=== PATIENT | male | born 1950 | race Caucasian/White ===

== ENCOUNTER 2017-05-19 21:18 | Emergency (ER) | payer BC ==
[~2017-05-19] VITALS: Ht 165.1 cm; Wt 83.3 kg
[2017-05-19 21:24] VITALS: BP 154/93; PULSE 88; RESP 16; TEMP 97.6; O2SAT 96
--- NOTE | 2017-05-19 21:42 | PD ---
HPI Chief Complaint: overheated Time Seen by Provider: 21:28 Travel History International Travel<30 days: Yes Contact w/Intl Traveler<30days: Yes Traveled to known affect area: Yes History of Present Illness HPI This 66-year-old male says he was in his garage today. He was extremely hot and he started feeling badly. He had quite a bad headache. He had some numbness in his left arm. He is having some numbness in his left arm off and on for several days. He says he was traveling last week and had to lift the heavy suitcase repeatedly with left arm. He hasn't been she has had chest pain. He had a bad headache which was fairly diffuse. The headache is improved considerably. [facility] Social History Tobacco Use: No Allergies-Medications (Allergen,Severity, Reaction): Coded Allergies: No Known Allergies (Unverified , 05/19/17) Reported Meds & Prescriptions Reported Meds & Active Scripts Active Reported Xalatan Opth Drops (Latanoprost) 0.005% Drops 1 Drop EACH EYE HS Hydrochlorothiazide 12.5 Mg Cap 12.5 Mg PO DAILY Omeprazole 20 Mg Tab 20 Mg PO DAILY Tamsulosin (Tamsulosin HCl) 0.4 Mg Cap 0.4 Mg PO HS Lisinopril 10 Mg Tab 10 Mg PO DAILY Review of Systems General / Constitutional: No: Fever, Chills Eyes: No: Diploplia HENT: Positive: Headaches Cardiovascular: Positive: Chest Pain or Discomfort, No: Palpitations Respiratory: No: Cough, Shortness of Breath Gastrointestinal: No: Nausea, Vomiting Genitourinary: No: Frequency Musculoskeletal: No: Myalgias Neurologic: Positive: Sensory Disturbance Psychiatric: No: Anxiety, Depression Physical Exam Narrative GENERAL: Well-developed male SKIN: Focused skin assessment warm/dry. HEAD: Atraumatic. Normocephalic. EYES: Pupils equal and round. No scleral icterus. No injection or drainage. ENT: No nasal bleeding or discharge. Mucous membranes pink and moist. NECK: Trachea midline. No JVD. CARDIOVASCULAR: Regular rate and rhythm. No murmur appreciated. RESPIRATORY: No accessory muscle use. Clear to auscultation. Breath sounds equal bilaterally. GASTROINTESTINAL: Abdomen soft, non-tender, nondistended. Hepatic and splenic margins not palpable. MUSCULOSKELETAL: No obvious deformities. No clubbing. No cyanosis. No edema. NEUROLOGICAL: Awake and alert. No obvious cranial nerve deficits. Motor grossly within normal limits. Normal speech. Patient complains of some numbness on the lateral arm but objective sensory testing is normal PSYCHIATRIC: Appropriate mood and affect; insight and judgment normal. Data Data Last Documented VS Vital Signs Date Time Temp Pulse Resp B/P Pulse Ox O2 Delivery O2 Flow Rate FiO2 05/19/17 22:16 80 16 129/82 96 Room Air 05/19/17 22:05 97.6 Orders Electrocardiogram (05/19/17 21:39) Complete Blood Count With Diff (05/19/17 21:39) Basic Metabolic Panel (Bmp) (05/19/17 21:39) Troponin I (05/19/17 21:39) Ct Brain W/O Iv Contrast(Rout) (05/19/17 21:39) Potassium Chloride (Kcl) (05/19/17 22:45) Labs Laboratory Tests Test 05/19/17 21:45 White Blood Count 8.1 TH/MM3 Red Blood Count 5.04 MIL/MM3 Hemoglobin 15.6 GM/DL Hematocrit 46.2 % Mean Corpuscular Volume 91.5 FL Mean Corpuscular Hemoglobin 30.8 PG Mean Corpuscular Hemoglobin 33.7 % Concent Red Cell Distribution Width 11.8 % Platelet Count 252 TH/MM3 Mean Platelet Volume 8.1 FL Neutrophils (%) (Auto) 66.6 % Lymphocytes (%) (Auto) 26.1 % Monocytes (%) (Auto) 5.0 % Eosinophils (%) (Auto) 1.7 % Basophils (%) (Auto) 0.6 % Neutrophils # (Auto) 5.5 TH/MM3 Lymphocytes # (Auto) 2.1 TH/MM3 Monocytes # (Auto) 0.4 TH/MM3 Eosinophils # (Auto) 0.1 TH/MM3 Basophils # (Auto) 0.0 TH/MM3 CBC Comment DIFF FINAL Differential Comment Sodium Level 136 MEQ/L Potassium Level 3.4 MEQ/L Chloride Level 102 MEQ/L Carbon Dioxide Level 24.3 MEQ/L Anion Gap 10 MEQ/L Blood Urea Nitrogen 18 MG/DL Creatinine 1.20 MG/DL Estimat Glomerular Filtration 61 ML/MIN Rate Random Glucose 170 MG/DL Calcium Level 9.0 MG/DL Troponin I LESS THAN 0.02 NG/ML MDM Medical Decision Making Medical Screen Exam Complete: Yes Emergency Medical Condition: Yes Medical Record Reviewed: Yes Differential Diagnosis Differential includes headache, CVA, heat exhaustion Narrative Course EKG shows a normal sinus rhythm. CT scan of the brain is negative. Troponin is normal. His potassium is slightly low. He is stable for discharge. He had been in the he got weak and dizzy he feels better now. Diagnosis Primary Impression: Heat effect Disposition: 01 DISCHARGE HOME Condition: Stable Jose Roberto Bear MD May 19, 2017 21:42
[2017-05-19 22:03] LABS: AUTOMATED NEUTROPHIL # 5.5 TH/MM3 (1.8-7.7); BASOPHIL % 0.6 % (0.0-2.0); EOSINOPHIL # 0.1 TH/MM3 (0-0.4); EOSINOPHIL % 1.7 % (0.0-4.0); HEMATOCRIT 46.2 % (39.0-51.0); HEMO FLAGS DIFF FINAL; LYMPH % 26.1 % (9.0-44.0); LYMPHOCYTE # 2.1 TH/MM3 (1.0-4.8); MEAN CELL VOLUME 91.5 FL (80.0-100.0); MEAN CORPUSCULAR HEMOGLOBIN 30.8 PG (27.0-34.0); MEAN CORPUSCULAR HGB CONC 33.7 % (32.0-36.0); NEUT % 66.6 % (16.0-70.0); PLATELET COUNT 252 TH/MM3 (150-450); RED BLOOD COUNT 5.04 MIL/MM3 (4.50-5.90); RED CELL DISTRIBUTION WIDTH 11.8 % (11.6-17.2); WHITE BLOOD COUNT 8.1 TH/MM3 (4.0-11.0)
[2017-05-19 22:05] VITALS: BP 154/93; PULSE 88; RESP 16; TEMP 97.6; O2SAT 96
[2017-05-19 22:12] LABS: CHLORIDE 102 MEQ/L (98-107); POTASSIUM 3.4 MEQ/L (3.5-5.1); SODIUM (NA) 136 MEQ/L (136-145)
--- NOTE | 2017-05-19 22:14 | RADRPT ---
EXAM DATE/TIME: 05/19/2017 21:54 [place] COMPARISON: No previous studies available for comparison. INDICATIONS : Cephalgia. RADIATION DOSE: 57.56 CTDIvol (mGy) MEDICAL HISTORY : None SURGICAL HISTORY : None. ENCOUNTER: Initial ACUITY: 1 day PAIN SCALE: 6/10 LOCATION: Bilateral cranial TECHNIQUE: Multiple contiguous axial images were obtained of the head. Using automated exposure control and adj ustment of the mA and/or kV according to patient size, radiation dose was kept as low as reasonably a chievable to obtain optimal diagnostic quality images. DICOM format image data is available electro nically for review and comparison. FINDINGS: CEREBRUM: The ventricles are normal for age. No evidence of midline shift, mass lesion, hemorrhage or acute in farction. No extra-axial fluid collections are seen. POSTERIOR FOSSA: The cerebellum and brainstem are intact. The 4th ventricle is midline. The cerebellopontine angle i s unremarkable. EXTRACRANIAL: The visualized portion of the orbits is intact. SKULL: The calvaria is intact. No evidence of skull fracture. CONCLUSION: Negative noncontrast head CT. Samuel Lopez MD on May 19, 2017 at 22:12 Board Certified Radiologist. This report was verified electronically.
[2017-05-19 22:15] LABS: ANION GAP 10 MEQ/L (5-15); BICARBONATE 24.3 MEQ/L (21.0-32.0)
[2017-05-19] MEDS ORDERED: TAMS0.4C4 PO (22:15)
[2017-05-19] MEDS ORDERED: LATA.005%O EACH EYE (22:15)
[2017-05-19] MEDS ORDERED: HYDR12.57 PO (22:15)
[2017-05-19] MEDS ORDERED: LISI10TA3 PO (22:15)
[2017-05-19] MEDS ORDERED: OMEP20TA PO (22:15)
[2017-05-19 22:16] VITALS: BP 129/82; PULSE 80; RESP 16; O2SAT 96
[2017-05-19 22:16] LABS: BLOOD UREA NITROGEN 18 MG/DL (7-18)
[2017-05-19 22:19] LABS: GLOMERULAR FILTRATION RATE 61 ML/MIN (>89)
[2017-05-19] MEDS ORDERED: POTASSIUM CHLORIDE 20 MEQ CONTROLLED RELEASE TAB PO ONE (22:45)
[2017-05-19] MEDS ORDERED: POTA10TA15 PO (22:52)
[2017-05-19] MEDS ORDERED: ONDANSETRON ODT 4 MG TAB PO ONE (23:00)
[2017-05-19] MEDS ORDERED: ACETAMINOPHEN 325 MG TAB PO ONE (23:00)
[2017-05-19] MEDS ORDERED: ACETAMINOPHEN/HYDROcodone 325 MG/5 MG TAB PO ONE (23:00)
[2017-05-19 23:06] VITALS: BP 118/86
--- NOTE | 2017-05-20 07:40 | EKG ---
Date Performed: 05/19/2017 Time Performed: 21:49:57 PTAGE: 66 years EKG: Sinus rhythm NORMAL ECG NO PREVIOUS TRACING DOCTOR: Shaheed Sweet Interpretating Date/Time 05/20/2017 07:39:04
== END 2017-05-19 23:30 | disposition home or self-care (01) ==
LOC: PHED 21:18
DX: T67.9XXA Effect of heat and light, unspecified, initial encounter (principal); R51 Headache; R20.0 Anesthesia of skin
CPT/HCPCS: 70450; 80048; 84484; 85025; 93005; 99285

== ENCOUNTER 2017-10-01 09:12 | Emergency (ER) | payer BC, MEDICARE ==
[~2017-10-01] VITALS: Ht 165.1 cm; Wt 79.0 kg
[~2017-10-01 09:12] MED LIST: HYDR12.57 PO; LATA.005%O EACH EYE; LISI10TA3 PO; OMEP20TA93 PO; POTA10TA15 PO; TAMS0.4C4 PO
[2017-10-01 09:16] VITALS: BP 137/87; PULSE 109; RESP 16; TEMP 99.1; O2SAT 100
[2017-10-01] MEDS ORDERED: FINA5TAB2 PO (09:33)
[2017-10-01] MEDS ORDERED: FENO160T PO (09:33)
[2017-10-01] MEDS ORDERED: BENZ100 PO (10:14)
[2017-10-01] MEDS ORDERED: OSEL75 PO (10:14)
[2017-10-01] MEDS ORDERED: IBUP1TAB7 PO (10:14)
[2017-10-01] MEDS ORDERED: KETOROLAC TROMETHAMINE 60 MG/2 ML (IM) VIAL IM ONE (10:15)
--- NOTE | 2017-10-01 10:15 | PD ---
HPI Chief Complaint: Cold / Flu Symptoms Time Seen by Provider: 09:29 Travel History International Travel<30 days: No Contact w/Intl Traveler<30days: No Traveled to known affect area: No History of Present Illness HPI 67-year-old male here with body aches, fever, cough times one day. No known sick contacts. No foreign travel. No aggravating or alleviating factors. Symptoms severity is moderate. PFSH Past Medical History Cardiovascular Problems: Yes (htn on meds) High Cholesterol: Yes GERD: Yes Glaucoma: Yes Hypertension: Yes Tetanus Vaccination: > 5 Years Influenza Vaccination: Yes Social History Alcohol Use: No Tobacco Use: No Substance Use: No Allergies-Medications (Allergen,Severity, Reaction): Coded Allergies: barium iodide (Verified Allergy, Severe, rash, sob, 10/01/17) Reported Meds & Prescriptions Reported Meds & Active Scripts Active Ibuprofen 800 Mg Tab 800 Mg PO Q6HR PRN Tessalon Perles (Benzonatate) 100 Mg Cap 200 Mg PO TID PRN 5 Days Tamiflu (Oseltamivir Phosphate) 75 Mg Cap 75 Mg PO BID 5 Days Potassium Chloride Microencaps 10 Meq Tab 10 Meq PO DAILY Reported Fenofibrate 160 Mg Tab 160 Mg PO DAILY Finasteride 5 Mg Tab 10 Mg PO DAILY Do not crush. Xalatan Opth Drops (Latanoprost) 0.005% Drops 1 Drop EACH EYE HS Hydrochlorothiazide 12.5 Mg Cap 12.5 Mg PO DAILY Omeprazole 20 Mg Tab 20 Mg PO DAILY Lisinopril 10 Mg Tab 10 Mg PO DAILY Review of Systems Except as stated in HPI: all other systems reviewed are Neg General / Constitutional: Positive: Fever Eyes: No: Visual changes HENT: Positive: Headaches Cardiovascular: No: Chest Pain or Discomfort Respiratory: Positive: Cough Gastrointestinal: No: Abdominal Pain Genitourinary: No: Dysuria Musculoskeletal: Positive: Myalgias Skin: No Rash Neurologic: No: Weakness Physical Exam Narrative GENERAL: Alert male. Ill-appearing but nontoxic. SKIN: Warm and dry. No rash HEAD: Normocephalic. EYES: Pupils equal, round, reactive to light. No scleral icterus. No injection or drainage. NECK: Supple, trachea midline. No JVD or lymphadenopathy. No meningismus. CARDIOVASCULAR: Regular rate and rhythm without murmurs, gallops, or rubs. RESPIRATORY: Breath sounds equal bilaterally. No accessory muscle use. GASTROINTESTINAL: Abdomen soft, non-tender, nondistended. MUSCULOSKELETAL: No cyanosis, or edema. BACK: Nontender without obvious deformity. No CVA tenderness. Data Data Last Documented VS Vital Signs Date Time Temp Pulse Resp B/P (MAP) Pulse Ox O2 Delivery O2 Flow Rate FiO2 10/01/17 09:16 99.1 109 16 137/87 (104) 100 Orders Orders Influenzae A/B Antigen (10/01/17 09:27) Ed Discharge Order (10/01/17 10:10) Ketorolac Inj (Toradol Inj) (10/01/17 10:15) [facility] Medical Decision Making Medical Screen Exam Complete: Yes Emergency Medical Condition: Yes Differential Diagnosis Influenza, pneumonia, viral infection Narrative Course 67-year-old here with flulike symptoms 2 days. His vital signs. He is nontoxic appearing. Influenza A positive. Diagnosis Primary Impression: Influenza A Referrals: Primary Care Physician Additional Instructions: Stay well hydrated by drinking fluids frequently. Rest. take [id number] Tylenol as needed for fever and headache Take the medications as prescribed. Scripts Ibuprofen (Ibuprofen) 800 Mg Tab 800 MG PO Q6HR Y for PAIN, #30 TAB 0 Refills Prov: Anuradha Burnett 10/01/17 Benzonatate (Tessalon Perles) 100 Mg Cap 200 MG PO TID Y for COUGH for 5 Days, CAP 0 Refills Prov: Anuradha Burnett 10/01/17 Oseltamivir (Tamiflu) 75 Mg Cap 75 MG PO BID for Mgmt Viral Infection for 5 Days, #10 CAP 0 Refills Prov: Anuradha Burnett 10/01/17 Disposition: 01 DISCHARGE HOME Condition: Stable Anuradha Burnett Oct 01, 2017 10:14
== END 2017-10-01 10:23 | disposition home or self-care (01) ==
LOC: PHEFT 09:12
DX: J09.X2 Influenza due to identified novel influenza A virus with other respiratory manifestations (principal); R51 Headache; I10 Essential (primary) hypertension; E78.00 Pure hypercholesterolemia, unspecified; K21.9 Gastro-esophageal reflux disease without esophagitis; H40.9 Unspecified glaucoma; Z79.899 Other long term (current) drug therapy
CPT/HCPCS: 87804; 96372; 99284; J1885